=== PATIENT | female | born 1960 | race Caucasian/White ===

== ENCOUNTER → 2018-04-13 | Outpatient (CLI) | payer BC ==
[2018-04-13 17:15] LABS: HCT 40.7 % (34.0-46.0); HGB 13.5 gm/dL (11.4-16.0); MCH 31.3 pg (25.0-35.0); MCHC 33.1 g/dL (31.0-37.0); MCV 94.4 fL (80.0-100.0); Platelet Count 368 k/uL (150-450); RBC 4.31 m/uL (3.80-5.40); RDW 14.5 % (11.5-15.5)
[2018-04-13 17:22] LABS: Partial Thromboplastin Time 22.7 sec (22.0-30.0); Prothrombin Time 9.8 sec (9.0-12.0)
[2018-04-13 17:37] LABS: Appearance,Urine Cloudy (Clear); Bacteria,Urine Few /hpf; Bilirubin,Urine Negative (Negative); Blood,Urine Negative (Negative); Color,Urine Yellow; Glucose,Urine (UA) Negative (Negative); Hyaline Casts,Urine 1 /lpf (0-2); Ketones,Urine Trace (Negative); Leukocyte Esterase,Urine Small (Negative); Mucus,Urine Few /hpf; Nitrite,Urine Negative (Negative); Protein,Urine Trace (Negative); RBC,Urine 1 /hpf (0-5); Specific Gravity,Urine 1.023 (1.001-1.035); Squamous Epithelial Cell,Urine 4 /hpf (0-4); Urobilinogen,Urine <2.0 mg/dL (<2.0); WBC,Urine 1 /hpf (0-5)
[2018-04-13 18:08] LABS: Albumin 4.4 g/dL (3.5-5.0); Calcium 10.1 mg/dL (8.4-10.2); Total Bilirubin 0.2 mg/dL (0.2-1.3); Total Protein 7.1 g/dL (6.3-8.2)
== END | disposition home or self-care (01) ==
LOC: LABPAT 16:36
PROVIDERS: ATTEND Orthopaedic Surgery
DX: Z01.812 Encounter for preprocedural laboratory examination (principal)
CPT/HCPCS: 36415; 80053; 81001; 85027; 85610; 85730; 87070

== ENCOUNTER 2018-04-25 07:00 | Inpatient (IN) | payer BC ==
[2018-04-18 12:45] VITALS: BMI 37.6
[~2018-04-25 07:00] MED LIST: ACETAMINOPHEN TAB 500 MG TAB PO ONE; DEXAMETHASONE SOD PHOSPHATE 10 MG/ML 1 ML VIAL IV ONE; LIDOCAINE 1% 20 ML VIAL (10MG/ML) FOR IV START INTRADERMA PRN; MELOXICAM 7.5 MG TAB PO ONE; MIDAZOLAM 2 MG/2 ML VIAL IV PRN; ONDANSETRON 4 MG/2 ML VIAL IVP ONE; ROPIVACAINE 246.25 MG, EPINEPHrine 0.5 MG, KETOROLAC 30 MG, cloNIDine HCL/PF 80 MCG, WA... MISCELLANE ONE; SCOPOLAMINE 1.5MG/72HR PATCH TRANSDERM ONE; TRANEXAMIC ACID 1,000 MG in SODIUM CHLORIDE 0.9% 50 ML IVPB ONE
[2018-04-25] MEDS ORDERED: ONDANSETRON 4 MG/2 ML VIAL ONE (09:51)
[2018-04-25] MEDS: LACTATED RINGERS 1,000 ML IV SCH ×2 (10:35→16:31)
[2018-04-25] MEDS ORDERED: MIDAZOLAM 2 MG/2 ML VIAL ONE ×2 (10:38→11:24)
[2018-04-25] MEDS ORDERED: ROPIVACAINE 1,100 MG, SODIUM CHLORIDE 0.9% 330 ML MISCELLANE PRN ×2 (10:46)
--- NOTE | 2018-04-25 11:10 | P.ONQ ---
Anesthesiology Proc Note - PNB - Peripheral Nerve Block Performed Left Adductor Canal Infusion Time Out Performed: Yes (0670) Procedure Start Time: 10:50 Procedure Stop Time: 11:05 Indication: Acute Post-Operative Pain, Dx/Pain Location (Left knee pain), Requested by physician Sedation Type: Sedate with meaningful contact maintained Preparation: Sterile Prep Position: Supine Catheter: Indwelling Needle Types: Wiramaelizabeth Needle Size: 100mm (4") Needle Gauge: 21 Technique: Ultrasound Injectate: 0.5% Ropivacaine (see comment for volume) Blood Aspirated: No Pain Paresthesia on Injection Noted: No Resistance on Injection: Normal Events: Uneventful and Well Tolerated
[2018-04-25] MEDS ORDERED: TRANEXAMIC ACID 1,000 MG/10 ML VIAL ONE (11:24)
[2018-04-25] MEDS ORDERED: diphenhydrAMINE 50 MG/ML 1 ML VIAL ONE (11:24)
[2018-04-25] MEDS ORDERED: PROPOFOL 10 MG/ML 20 ML VIAL IV ONE (11:24)
[2018-04-25] MEDS ORDERED: fentaNYL (PF) 50 MCG/ML 2 ML AMP ONE (11:24)
[2018-04-25] MEDS ORDERED: SODIUM CHLORIDE 0.9% 100 ML BAG ONE (11:24)
[2018-04-25] MEDS ORDERED: LIDOCAINE 1% INJ 10MG/ML (20 ML MDV) ONE (11:24)
[2018-04-25] MEDS ORDERED: hydrOXYzine PAMOATE 25 MG CAP PO PRN (11:28)
[2018-04-25] MEDS ORDERED: BISACODYL 10 MG SUPP RECTAL PRN (11:28)
[2018-04-25] MEDS ORDERED: NALOXONE 0.4 MG/ML 1 ML VIAL IV PRN (11:28)
[2018-04-25] MEDS ORDERED: HYDROmorphone 1 MG/ML 1 ML SYRINGE IVP PRN (11:28)
[2018-04-25] MEDS ORDERED: ONDANSETRON 4 MG/2 ML VIAL IVP PRN (11:28)
[2018-04-25] MEDS ORDERED: HYDROcodone/APAP 5-325MG 1 EACH TAB PO PRN (11:28)
[2018-04-25] MEDS ORDERED: NA PHOS,M-B/NA PHOS,DI-BA 133 ML ENEMA RECTAL PRN (11:28)
[2018-04-25] MEDS ORDERED: MAGNESIUM HYDROXIDE 2,400 MG/10 ML CUP PO PRN (11:28)
[2018-04-25] MEDS ORDERED: DIAZEPAM 5 MG TAB PO PRN ×2 (11:28)
[2018-04-25] MEDS ORDERED: ceFAZolin 3,000 MG in SODIUM CHLORIDE 0.9% IRRIGATIO 3,000 ML IRRIGATION ONE ×4 (11:40)
--- NOTE | 2018-04-25 12:32 | P.OP ---
Date of Procedure: 04/25/18 Preoperative Diagnosis: Polyethylene wear left total knee arthroplasty Postoperative Diagnosis: Polyethylene wear left total knee arthroplasty Procedure(s) Performed: Polyethylene exchange, revision left total knee arthroplasty Implants: [employer]ica NexGen polyethylene, size green, 17 mm, cruciate retaining Anesthesia: spinal Surgeon: Jasson Pearson Secretary Of State #1: Amanda Coulter Estimated Blood Loss (ml): 50 Pathology: other (Cultures 2) Condition: stable Disposition: PACU Indications for Procedure: This is a 58-year-old female has had a left total knee arthroplasty performed approximately 15 years ago. She has exam findings and x-ray findings consistent with polyethylene wear of her left total knee arthroplasty. After discussing the surgical and nonsurgical treatment options with her at length, I recommended a revision left total knee arthroplasty with polyethylene exchange, possible complete revision. Informed consent was obtained. Operative Findings: The operative findings are consistent with severe polyethylene wear and instability of the left total knee arthroplasty Description of Procedure: Patient was seen in the preoperative area consent was reviewed and operative site was marked with a skin marker. An adductor canal pain catheter was placed by anesthesia in the preoperative area. Patient was then brought to the operating room and given preoperative antibiotics intravenously. A spinal anesthetic was administered by the anesthesia department. A tourniquet was placed on the upper thigh and the lower extremity was prepped and draped in usual sterile fashion. A gram of transexamic acid was given. A universal timeout was then performed which confirmed the patient's name, surgical site, ALLERGIES, and consent. The lower extremity was then exsanguinated and tourniquet was inflated to 250 mmHg. A standard and anterior midline approach to the knee was performed. The skin and subcutaneous tissue was dissected down to the patellar tendon, with the scar being excised. A medial parapatellar arthrotomy was then performed. A large amount of clear fluid was encountered, and this was cultured 2. The knee was then extended, the patellar was everted, and the knee was again flexed. Scar tissue was excised from about the knee, and then the knee was then examined. There is found to be significant medial instability on full extension and flexion to 90. The polyethylene component was easily removed with a hemostat. The polyethylene component was inspected and found to have significant posterior wear. The femoral, tibial, and patellar components were then inspected and found to be well fixed. A 17 mm trial was then placed, which was one size up from the 14 mm component that was already in place. The knee was then able to fully extend and flex to 115, and instability was then gone. The trial was then removed. A Doc was then used to remove any reactive synovium. The soft tissues were then injected with a ropivacaine solution, which consisted of 246.25 mg of ropivacaine, 0.5 mg of epinephrine, 30 mg of Toradol, 80 g of clonidine, and 48.45 mL of sterile water, for a total of 100 mL of fluid injected. After the cemented hardened. The tourniquet was released, and hemostasis was obtained. A second gram of transexamic acid was given. The knee was again irrigated. The knee was again taken through range of motion and found to be stable throughout all range of motion of 0-130, and the patella tracked normally. The fascia was then closed with #2 strata fix suture. The subcutaneous tissue was closed with 3-0 Vicryl and 3-0 strata fix. Dermabond glue was used for the skin and placed with the knee in flexion. The patient was placed in a sterile silver dressing. Patient was then transferred to recovery room in stable condition. The server service assistant FRANCIS Daniel was required due the complexity surgery and the need for a skilled mental health assistant. She assisted in positioning, draping, retraction, and closure of the wound.
--- NOTE | 2018-04-25 13:27 | XR ---
EXAMINATION TYPE: XR knee limited LT DATE OF EXAM: 04/25/2018 COMPARISON: NONE TECHNIQUE: Two views submitted HISTORY: Post op FINDINGS: There is a prosthetic knee in near anatomic alignment. There is soft tissue edema and emphysema. IMPRESSION: 1. Postoperative change. Appears in near-anatomic alignment
[2018-04-25] MEDS: HYDROmorphone 0.5 MG/0.5 ML SYRINGE IVP PRN ×3 (13:37→14:04)
[2018-04-25] MEDS: fentaNYL (PF) 50 MCG/ML 2 ML AMP IVP ONE ×3 (13:58→14:14)
[2018-04-25] MEDS: HYDROcodone/APAP 5-325MG 1 EACH TAB PO PRN (15:27)
[2018-04-25] MEDS: SODIUM CHLORIDE 0.9% 1,000 ML IV SCH (15:39)
[2018-04-25] MEDS ORDERED: ceFAZolin 3 GM in SODIUM CHLORIDE 0.9% 100 ML IVPB SCH (16:00)
[2018-04-25] MEDS ORDERED: ALPRAZolam 0.5 MG TAB PO PRN (16:32)
[2018-04-25] MEDS: HYDROmorphone 1 MG/ML 1 ML SYRINGE IVP PRN ×2 (17:13→20:22)
[2018-04-25] MEDS: VARENICLINE 0.5 MG TAB PO SCH (17:17)
--- NOTE | 2018-04-25 19:17 | CONS ---
CONSULTATION DATE OF CONSULTATION: 04/25/2018. REASON FOR CONSULTATION: Advice regarding hypertension, hyperlipidemia requested by Dr. Pearson. HISTORY OF PRESENT ILLNESS: This 58-year-old woman with a past history of GERD, hypertension, hyperlipidemia, DJD, history of back surgery, being followed by Dr. Amaya Billings in the outpatient setting, underwent revision of left total knee arthroplasty by polyethylene exchange for failure of the arthroplasty by Dr. Pearson. Currently the patient is having no chest pain, no palpitations. No headache, loss of consciousness, nausea, diarrhea, fever, rigors, chills at this time. PAST MEDICAL HISTORY: Hypertension, hyperlipidemia, GERD, DJD. The patient just finished antibiotics recently for UTI mg. HOME MEDICATIONS: Are: 1. Norvasc 10 mg p.o. daily. 2. Chantix 0.5 p.o. daily. 3. Zocor 20 mg p.o. daily. 4. Prilosec 20 mg with breakfast. 5. Motrin 800 mg t.i.d. p.r.n. 6. Binger 5 mg every 6 hours p.r.n. 7. Xanax 0.5 mg daily p.r.n. ALLERGIES: None. FAMILY HISTORY: History of cancer, leukemia in the family. SOCIAL HISTORY: Previous history of smoking. Occasional alcohol intake. REVIEW OF SYSTEMS: ENT: No diminished hearing, diminished vision. CARDIOVASCULAR: No angina, palpitations. RESPIRATORY: No cough or hemoptysis. GI: No nausea or vomiting. : No dysuria. NERVOUS: No numbness or weakness. ALLERGY/IMMUNOLOGY: No asthma or hay fever. MUSCULOSKELETAL: As mentioned earlier. HEMATOLOGY/ONCOLOGY: No history of anemia. ENDOCRINE: No history of diabetes, hypothyroidism. CONSTITUTIONAL: As mentioned earlier. DERMATOLOGY: Negative. RHEUMATOLOGY: Negative. PSYCHIATRY: As mentioned earlier. PHYSICAL EXAMINATION: Alert and oriented x3. Pulse 82, blood pressure 130/65, respirations 16, temperature 97.7, pulse ox 98% on 2L. HEENT: Conjunctivae normal. Oral mucosa moist. NECK: No jugular venous distention. No carotid bruits. No lymph node enlargement. CARDIOVASCULAR: S1, S2 muffled. RESPIRATORY: Breath sounds diminished in the bases. No rhonchi. No crackles. ABDOMEN: Soft, nontender. LEGS: Status post surgery. NERVOUS SYSTEM: No focal deficits. LABS: Noted. ASSESSMENT: 1. Status post revision of the left total knee arthroplasty with polyethylene exchange. 2. History of degenerative joint disease. 3. Gastroesophageal reflux disease. 4. Hypertension. 5. Hyperlipidemia. 6. History of back surgery. 7. Benign breast tumors history. 8. History of anxiety. 9. Remote history of nicotine dependence. RECOMMENDATIONS AND DISCUSSION: In this 58-year-old woman who presented with multiple medical issues, at this time I recommend to continue current medical management and symptomatic treatment. Will initiate home medications, monitor blood sugars, monitor blood pressure closely. Otherwise, pain management, DVT prophylaxis, incentive spirometry. The rest of the medications. Smoking cessation advised. Patient is on Chantix. The will be asked to follow up with Dr. Billings after discharge. We will follow the patient closely. Thank you, Dr. Pearson. DARNELL / BARRERA: [id number] /
[2018-04-25] MEDS: ASPIRIN 325 MG TAB PO SCH (20:21)
[2018-04-25] MEDS ORDERED: SENNOSIDES-DOCUSATE SODIUM 1 EACH TAB PO SCH (21:00)
[2018-04-26] MEDS: HYDROcodone/APAP 5-325MG 1 EACH TAB PO PRN ×2 (00:39→06:53)
[2018-04-26 02:31] VITALS: RESP 16
[2018-04-26] MEDS: SODIUM CHLORIDE 0.9% 1,000 ML IV SCH (04:29)
[2018-04-26] MEDS: HYDROmorphone 1 MG/ML 1 ML SYRINGE IVP PRN (05:36)
--- NOTE | 2018-04-26 05:37 | P.PN ---
Progress Note - Text Progress Note Date: 04/26/18 The patient is doing well status post total knee replacement. Pain is well controlled by a combination of local anesthetic infusion through the adductor canal catheter and oral analgesics. There are no signs of infection around the catheter skin entry site. The local anesthetic infusion will be continued as per protocol.
[2018-04-26] MEDS ORDERED: PANTOPRAZOLE 40 MG TABLET PO SCH (07:30)
[2018-04-26 07:35] LABS: Basophils % (A) 0 %; Eosinophils % (A) 0 %; HGB 11.3 gm/dL (11.4-16.0); Lymphocytes # (A) 1.2 k/uL (1.0-4.8); Lymphocytes % (A) 10 %; MCH 29.4 pg (25.0-35.0); MCHC 31.3 g/dL (31.0-37.0); MCV 94.1 fL (80.0-100.0); Mean Platelet Volume 6.7; Monocytes # (A) 0.5 k/uL (0-1.0); Monocytes % (A) 5 %; Neutrophils # (A) 9.6 k/uL (1.3-7.7); Neutrophils % (A) 84 %; Platelet Count 385 k/uL (150-450); RBC 3.83 m/uL (3.80-5.40); RDW 14.1 % (11.5-15.5); WBC 11.4 k/uL (3.8-10.6)
[2018-04-26] MEDS ORDERED: ATORVASTATIN 10 MG TAB PO SCH (09:00)
[2018-04-26] MEDS ORDERED: MELOXICAM 7.5 MG TAB PO SCH (09:00)
[2018-04-26] MEDS ORDERED: amLODIPine 10 MG TAB PO SCH (09:00)
--- NOTE | 2018-04-26 09:07 | P.DS ---
Providers Date of admission: 04/25/18 08:53 Expected date of discharge: 04/26/18 Attending physician: Jasson Pearson Consults: 04/25/18 11:28 Consult Physician Routine Consulting Provider: Amaya Billings Consult Reason/Comments: medical management Do you want consulting provider notified?: Yes 04/25/18 16:20 Consult Physician Routine Consulting Provider: Eric Ennis Consult Reason/Comments: medical management Do you want consulting provider notified?: Yes Primary care physician: Amaya Billings - Discharge Diagnosis(es) (1) Failed total left knee replacement Current Visit: Yes Status: Acute (2) Status post revision of total replacement of left knee Current Visit: Yes Status: Acute Hospital Course: This is a 58-year-old female with known history of polyethylene wear of her left total knee arthroplasty that was done ~15 years ago. The patient presents for evaluation. After discussion and consideration patient elects to proceed with revision left total knee arthroplasty. The patient is seen preoperatively by Dr. Pearson and medically cleared for surgery by their primary care physician. Patient is admitted to [facility] on 04/25/2018 for revision left total knee arthroplasty. The procedures performed without complication or sequelae. The patient is doing well postoperatively. Labs and vital signs are stable on day of discharge. On day of discharge patient's knee incision is healing well. There is minimal erythema. There is no drainage noted at this time. There is minimal soft tissue swelling to the knee. Patient has full foot and ankle motion without difficulty or pain. Neurovascular status to the left lower extremity is intact. Patient is discharged home in good condition. Please see med rec for accurate list of home medications. Plan - Discharge Summary Discharge Rx Participant: Yes New Discharge Prescriptions: New Aspirin 325 mg PO BID #60 tab HYDROcodone/APAP 5-325MG [Hope 5-325] 1 - 2 tab PO Q4-6H PRN #84 tab PRN Reason: Pain Sennosides [Senokot] 1 tab PO BID #60 tablet No Action amLODIPine [Norvasc] 10 mg PO DAILY Varenicline [Chantix Starter Pack] 0.5 mg PO DAILY Omeprazole [PriLOSEC] 20 mg PO AC-BRKFST HYDROcodone/APAP 5-325MG [Hope 5-325] 1 tab PO Q6HR PRN PRN Reason: Pain ALPRAZolam [Xanax] 0.5 mg PO DAILY PRN PRN Reason: Anxiety Simvastatin [Zocor] 20 mg PO DAILY Ibuprofen [Motrin] 800 mg PO TID PRN PRN Reason: Pain Discharge Medication List ALPRAZolam [Xanax] 0.5 mg PO DAILY PRN 04/18/18 [History] HYDROcodone/APAP 5-325MG [Hope 5-325] 1 tab PO Q6HR PRN 04/18/18 [History] Ibuprofen [Motrin] 800 mg PO TID PRN 04/18/18 [History] Omeprazole [PriLOSEC] 20 mg PO AC-BRKFST 04/18/18 [History] Simvastatin [Zocor] 20 mg PO DAILY 04/18/18 [History] Varenicline [Chantix Starter Pack] 0.5 mg PO DAILY 04/18/18 [History] amLODIPine [Norvasc] 10 mg PO DAILY 04/18/18 [History] Aspirin 325 mg PO BID #60 tab 04/26/18 [Rx] HYDROcodone/APAP 5-325MG [Hope 5-325] 1 - 2 tab PO Q4-6H PRN #84 tab 04/26/18 [ Rx] Sennosides [Senokot] 1 tab PO BID #60 tablet 04/26/18 [Rx] Follow up Appointment(s)/Referral(s): Jasson Pearson DO [Doctor of Osteopathic Medicine] - 2 Weeks Ambulatory/Diagnostic Orders: Continuous Passive Motion (CPM) Machine [DME.AMB1] Time Frame: 3 Weeks, Location : None Selected Activity/Diet/Wound Care/Special Instructions: Weightbearing as tolerated with a walker CPM 5-6h daily Leave dressing intact. May be removed by home care nurse in 10 days. May shower with dressing on. Please call [facility] with any questions or concerns, Discharge Disposition: HOME WITH HOME HEALTH SERVICES
[2018-04-26] MEDS ORDERED: ALPRAZolam 0.5 MG TAB PO PRN (09:13)
[2018-04-26] MEDS: ASPIRIN 325 MG TAB PO SCH (09:39)
[2018-04-26] MEDS: VARENICLINE 0.5 MG TAB PO SCH (09:39)
[2018-04-26 09:49] VITALS: PULSE 82
[2018-04-26 09:50] VITALS: BP 117/67; TEMP 97.8
--- NOTE | 2018-04-26 14:26 | PN ---
PROGRESS NOTE DATE OF SERVICE: 04/26/2018 INTERVAL HISTORY: This is a 58-year-old woman who was admitted after revision of the left total knee arthroplasty, is improving significantly. No chest pain. No palpitations. No fever. PHYSICAL EXAM: Alert and oriented x3. Pulse 52, blood pressure 170/67, respirations 16, temperature 97.8, pulse ox 98% on room air. HEENT: Conjunctivae normal. NECK: No jugular venous distention. CARDIOVASCULAR: S1, S2, muffled. RESPIRATORY: Breath sounds diminished at the bases, no rhonchi, no crackles. ABDOMEN: Soft. LEGS: Status post surgery. NERVOUS SYSTEM: No focal deficit. LABS: WBC 11.4. ASSESSMENT: 1. Status post revision of the left total knee arthroplasty with polyethylene exchange. 2. Increased WBC, possibly reactive. 3. History of degenerative joint disease. 4. Gastroesophageal reflux disease. 5. Hypertension. 6. Hyperlipidemia. 7. History of back surgery. 8. Benign breast tumors history. 9. History of anxiety. 10.Remote history of nicotine dependence. RECOMMENDATION: Recommend to continue current management and symptomatic treatment. Otherwise, incentive spirometry. Recommend close follow up in the outpatient setting with primary physician in the outpatient setting and rest of the recommendations from Orthopedic Surgery, DVT prophylaxis. MMODL / IJN: [id number] /
--- NOTE | 2018-05-02 10:27 | CDI ---
Last Revision, September 2017 Documentation Clarification Form Date: 05/02/2018 12:00:00 AM From: Radha Lemus RN, CCDS Admit Date: 04/25/2018 8:53:00 AM Patient Name: Milvia Bender Visit Number: [id number] Discharge Date: ATTENTION: The Clinical Documentation Specialists (CDI) and [facility] Coding Staff appreciate your assistance in clarifying documentation. Please respond to the clarification below the line at the bottom and electronically sign. The CDI & [facility] Coding staff will review the response and follow-up if needed. Please note: Queries are made part of the Legal Health Record. If you have any questions, please contact the author of this message via ITS. Dr. Jasson Pearson Patient admitted for an elective procedure related to a diagnosis of polyethylene wear left total knee arthroplasty Patient history/risk factors: Left total knee arthroplasty 15 years ago Clinical Indicators: She present with exam and x-ray findings consistent with polyethylene wear of her left total knee arthroplasty and after failure on nonsurgical treatment she present for a revision. Treatment: Polyethylene exchange, revision left total knee arthroplasty In your professional opinion, in order to accurately code the procedure can you please clarify replacement of knee liner (Root operations and removal and supplement)? Femoral surface Patellar surface Tibial insert Other, Specified (e.g. unicondylar) Please continue to document in the discharge summary in order to capture severity of illness and risk of mortality. Include clinical findings that support your diagnosis. MTDD
--- NOTE | 2018-05-08 11:15 | CDI ---
Last Revision, September 2017 Documentation Clarification Form Date: 05/08/18 From: Radha Lemus Felisa Gerard, Pediatric Nurse Practitioner Hours-8:30 am & 5 pm M-F Admit Date: 04/25/2018 8:53:00 AM Patient Name: Milvia Bender Visit Number: [id number] Discharge Date: 04/26/18 ATTENTION: The Clinical Documentation Specialists (CDI) and [facility] Coding Staff appreciate your assistance in clarifying documentation. Please respond to the clarification below the line at the bottom and electronically sign. The CDI & [facility] Coding staff will review the response and follow-up if needed. Please note: Queries are made part of the Legal Health Record. If you have any questions, please contact the author of this message via ITS. Jasson Murrell , Patient admitted for an elective procedure related to a diagnosis of polyethylene wear left total knee arthroplasty Patient history/risk factors: Left total knee Arthroplasty 15 years ago Clinical Indicators: She present with exam and x-ray findings consistent with polyethylene wear of her left total knee arthroplasty and after failure on nonsurgical treatment she present for a revision. Treatment: Polyethylene exchange, revision left total knee arthroplasty In your professional opinion, in order to accurately code the procedure can you please clarify replacement of knee liner (Root operations and removal and supplement)? Femoral surface Patellar surface Tibial insert Other, Specified (e.g. unicondylar) Please continue to document in your progress notes and discharge summary in order to capture severity of illness and risk of mortality. Include clinical findings that support your diagnosis. MTDD
--- NOTE | 2018-05-09 10:14 | CDI ---
Last Revision, September 2017 Documentation Clarification Form Date: 05/02/2018 12:00:00 AM From: Radha Lemus RN, CCDS Admit Date: 04/25/2018 8:53:00 AM Patient Name: Milvia Bender Visit Number: [id number] Discharge Date: ATTENTION: The Clinical Documentation Specialists (CDI) and [facility] Coding Staff appreciate your assistance in clarifying documentation. Please respond to the clarification below the line at the bottom and electronically sign. The CDI & [facility] Coding staff will review the response and follow-up if needed. Please note: Queries are made part of the Legal Health Record. If you have any questions, please contact the author of this message via ITS. Jasson Murrell , Patient admitted for an elective procedure related to a diagnosis of polyethylene wear left total knee arthroplasty Patient history/risk factors: Left total knee Arthroplasty 15 years ago Clinical Indicators: She present with exam and x-ray findings consistent with polyethylene wear of her left total knee arthroplasty and after failure on nonsurgical treatment she present for a revision. Treatment: Polyethylene exchange, revision left total knee arthroplasty In your professional opinion, in order to accurately code the procedure can you please clarify replacement of knee liner (Root operations and removal and supplement)? Femoral surface Patellar surface Tibial insert Other, Specified (e.g. unicondylar) Please continue to document in your progress notes and discharge summary in order to capture severity of illness and risk of mortality. Include clinical findings that support your diagnosis. MTDD
== END 2018-04-26 13:05 | disposition home health service (06) | DRG 488 ==
LOC: 2ORMAIN 08:53 → 3SUR 14:45
PROVIDERS: ADMIT Orthopaedic Surgery; ATTEND Orthopaedic Surgery
PROC: 0SUW09Z Supplement Left Knee Joint, Tibial Surface with Liner, Open Approach (ICD-10-PCS; 2018-04-25)
PROC: 0SPD09Z Removal of Liner from Left Knee Joint, Open Approach (ICD-10-PCS; principal; 2018-04-25 11:40)
DX: T84.063A Wear of articular bearing surface of internal prosthetic left knee joint, initial encounter (principal); F11.20 Opioid dependence, uncomplicated; T84.023A Instability of internal left knee prosthesis, initial encounter; E66.01 Morbid (severe) obesity due to excess calories; F41.1 Generalized anxiety disorder; K21.9 Gastro-esophageal reflux disease without esophagitis; I10 Essential (primary) hypertension; E78.5 Hyperlipidemia, unspecified; E55.9 Vitamin D deficiency, unspecified; G89.29 Other chronic pain; M54.5 Low back pain; K59.00 Constipation, unspecified; M19.91 Primary osteoarthritis, unspecified site; Z68.37 Body mass index [BMI] 37.0-37.9, adult; Z79.899 Other long term (current) drug therapy; Z87.891 Personal history of nicotine dependence; Z96.651 Presence of right artificial knee joint; Z87.440 Personal history of urinary (tract) infections; Z80.6 Family history of leukemia; Y79.2 Prosthetic and other implants, materials and accessory orthopedic devices associated with adverse incidents
CPT/HCPCS: 85025; 87070; 87075; 87205

== ENCOUNTER 2022-02-26 08:16 | Day surgery (SDC) | payer BC ==
[2022-02-25 14:56] VITALS: BMI 30.9
[~2022-02-26 08:16] MED LIST changes: -ACETAMINOPHEN TAB 500 MG TAB PO ONE; -DEXAMETHASONE SOD PHOSPHATE 10 MG/ML 1 ML VIAL IV ONE; +LACTATED RINGERS 1,000 ML IV SCH; -LIDOCAINE 1% 20 ML VIAL (10MG/ML) FOR IV START INTRADERMA PRN; -MELOXICAM 7.5 MG TAB PO ONE; -MIDAZOLAM 2 MG/2 ML VIAL IV PRN; -ONDANSETRON 4 MG/2 ML VIAL IVP ONE; -ROPIVACAINE 246.25 MG, EPINEPHrine 0.5 MG, KETOROLAC 30 MG, cloNIDine HCL/PF 80 MCG, WA... MISCELLANE ONE; -SCOPOLAMINE 1.5MG/72HR PATCH TRANSDERM ONE; -TRANEXAMIC ACID 1,000 MG in SODIUM CHLORIDE 0.9% 50 ML IVPB ONE
[2022-02-26 08:49] VITALS: TEMP 97.5
[2022-02-26] MEDS ORDERED: LIDOCAINE 1% (10MG/ML) FOR IV START INTRADERMA ONE (08:50)
[2022-02-26] MEDS ORDERED: PROPOFOL 10 MG/ML 20 ML VIAL IV ONE (09:46)
[2022-02-26] MEDS ORDERED: IV FLUID CONTINUATION 1,000 ML IV ONE (10:11)
--- NOTE | 2022-02-26 10:13 | P.PCN ---
Date of Procedure: 02/26/22 Procedure(s) Performed: BRIEF HISTORY: Patient is a 62-year-old pleasant white female scheduled for an elective colonoscopy as a part of evaluation of prior history of colon polyps. Last colonoscopy was 5 years ago. PROCEDURE PERFORMED: Colonoscopy with snare polypectomy . PREOPERATIVE DIAGNOSIS: . history of colon polyps IV sedation per Anesthesia. PROCEDURE: After informed consent was obtained, the patient, was brought into the endoscopy unit. IV sedation was administered by Anesthesia under continuous monitoring. Digital rectal examination was normal. Initially the Olympus CF-160 flexible video colonoscope was then inserted in the rectum, gradually advanced into the cecum without any difficulty. Careful examination was performed as the scope was gradually being withdrawn. Ileocecal valve and the appendiceal orifice were visualized and appeared normal. Prep was excellent. Mucosa of the cecum,he normal. In the ascending colon there was a 5 mm polyp removed by snare polypectomy. In the proximal rectum there was a large lipoma noted and adjacent to this area there was a 2 cm lipoma seen which was biopsied. In the mid transverse colon there was a 1.5 cm polyp that was removed by snare polypectomy. In the descending colon there was a 5 mm polyp removed by snare polypectomy. rest of the transverse colon, descending colon, sigmoid colon, and rectum appeared normal. Retroflexion was performed in the rectum and no lesions were seen. The patient tolerated the procedure well. IMPRESSION: 5 mm ascending colon polyp status post snare polypectomy 1.5 cm mid transverse colon polyp status post polypectomy 2 cm proximal transverse colon submucosal polyp possibly a lipoma status post biopsy 5 mm descending colon polyp status post snare polypectomy RECOMMENDATIONS: Findings of this examination were discussed with the patient as well as a family. She was advised to follow up biopsy results. If the biopsy result adenoma she can have a repeat colonoscopy in 3 years.
[2022-02-26 10:33] VITALS: BP 125/80; PULSE 78; RESP 18
== END 2022-02-26 10:45 | disposition home or self-care (01) ==
LOC: ORWHC2ENDO 08:16
PROVIDERS: ATTEND Internal Medicine Gastroenterology
DX: Z12.11 Encounter for screening for malignant neoplasm of colon (principal); D12.3 Benign neoplasm of transverse colon; D12.4 Benign neoplasm of descending colon; D17.79 Benign lipomatous neoplasm of other sites; K21.9 Gastro-esophageal reflux disease without esophagitis; I10 Essential (primary) hypertension; E78.5 Hyperlipidemia, unspecified; F17.210 Nicotine dependence, cigarettes, uncomplicated; M19.90 Unspecified osteoarthritis, unspecified site; Z86.010 Personal history of colon polyps; Z79.891 Long term (current) use of opiate analgesic; Z79.899 Other long term (current) drug therapy
CPT/HCPCS: 88305; 45380; 45385; J2704